=== PATIENT | female | born 1990 | race Caucasian/White ===

== ENCOUNTER 2018-04-03 23:45 | Emergency (ER) | payer MEDICAID, OTHER ==
[~2018-04-03] VITALS: Ht 152.4 cm; Wt 50.8 kg
[~2018-04-03 23:45] MED LIST: PREN-385 PO
[2018-04-03 23:48] VITALS: BP 126/80
--- NOTE | 2018-04-03 23:51 | NUR ---
PT TAKEN TO BED 9
--- NOTE | 2018-04-03 23:52 | NUR ---
27 Y/O F W/C/O SUDDEN ONSET SOB/ANXIETY X 30 MINUTES. PMH ANXIETY.PT DENIES N/V/D; SKIN IS INTACT, PINK/WARM/DRY; AAOX4, PERRL, WITH EVEN AND STEADY GAIT; LUNGS CLEAR BL, BREATHING LABORED; HR EVEN AND REGULAR, BL PERIPHERAL PULSES PRESENT; BS ACTIVE X4, NO TENDERNESS TO PALPATION, NO HEPATOSPLENOMEGALLY PALPATED, RESONANT TO PERCUSSION; PT DENIES ANY FEVER OR COUGH AT THIS TIME; PT STATES 0/10 PAIN AT THIS TIME; VSS; PATIENT POSITIONED FOR COMFORT; HOB ELEVATED; BEDRAILS UP X2; BED DOWN.
--- NOTE | 2018-04-03 23:58 | NUR ---
EKG PERFORMED AT BEDSIDE. PT COVERED IN GOWN DURING PROCEDURE WITH SPOUSE PRESENT. NORMAL SINUS RHYTHM WITH SINUS ARRHYTHMIA.
--- NOTE | 2018-04-04 00:36 | NUR ---
Dr. Prather evaluating patient at bedside.
[2018-04-04] MEDS: LORazepam 1 MG TAB PO ONE (01:05)
--- NOTE | 2018-04-04 01:11 | NUR ---
X-Ray at bedside.
[2018-04-04 01:45] LABS: ANION GAP 11.8 (8-16); CARBON DIOXIDE 25.9 mmol/L (21-32); CREATININE 0.7 mg/dL (0.6-1.3); POTASSIUM 3.7 mmol/L (3.5-5.1)
[2018-04-04 01:53] LABS: HEMOGLOBIN 13.6 g/dL (12.0-16.0); MEAN CORPUSCULAR HEMOGLOBIN 32 pg (27-31); MEAN CORPUSCULAR HGB CONC 34 g/dL (33-37); MEAN CORPUSCULAR VOLUME 92.8 fL (80-94); PLATELET COUNT (AUTO) 228 K/uL (140-450); RED BLOOD CELL COUNT(AUTO) 4.31 MIL/uL (4.20-5.40); RED CELL DISTRIBUTION WIDTH 11.6 % (11.6-13.7); WHITE BLOOD COUNT (AUTO) 8.5 K/uL (4.8-10.8)
[2018-04-04 01:54] LABS: BASOPHILS # (AUTO) 0.1 K/uL (0.00-0.22); EOSINOPHILS # (AUTO) 0.1 K/uL (0-0.4); EOSINOPHILS % (AUTO) 0.9 % (0.0-4.0); LYMPHOCYTES # (AUTO) 2.6 K/uL (2.5-16.5); LYMPHOCYTES % (AUTO) 31.1 % (20.5-51.1); MONOCYTES # (AUTO) 0.6 K/uL (0.8-1.0); NEUTROPHILS # (AUTO) 5.1 K/uL (1.8-7.7)
[2018-04-04 02:40] VITALS: BP 92/52
== END 2018-04-04 02:41 | disposition home or self-care (01) ==
LOC: MED 23:45
DX: F41.9 Anxiety disorder, unspecified (principal); R94.31 Abnormal electrocardiogram [ECG] [EKG]; Z79.899 Other long term (current) drug therapy
CPT/HCPCS: 36415; 71045; 80048; 81025; 84484; 85025; 93005; 99284; 99285; Q0092

== ENCOUNTER 2022-04-08 17:27 | Emergency (ER) | payer MEDICAID ==
[~2022-04-08] VITALS: Ht 152.4 cm; Wt 55.8 kg
[2022-04-08 17:35] VITALS: BP 115/71
[2022-04-08] MEDS ORDERED: ONDANSETRON 4 MG ODT PO ONE (20:10)
[2022-04-08] MEDS ORDERED: KETOROLAC 30 MG/ML VIAL IM ONE (20:10)
[2022-04-08 20:34] LABS: BASOPHILS % (AUTO) 0.4 % (0.0-2.0); EOSINOPHILS # (AUTO) 0.1 K/uL (0-0.4); EOSINOPHILS % (AUTO) 1.9 % (0.0-4.0); HEMOGLOBIN 14.1 g/dL (12.0-16.0); LYMPHOCYTES # (AUTO) 2.2 K/uL (2.5-16.5); LYMPHOCYTES % (AUTO) 37.1 % (20.5-51.1); MEAN CORPUSCULAR HEMOGLOBIN 31 pg (27-31); MEAN CORPUSCULAR HGB CONC 35 g/dL (33-37); MEAN CORPUSCULAR VOLUME 89.3 fL (80-94); MONOCYTES # (AUTO) 0.4 K/uL (0.8-1.0); MONOCYTES % (AUTO) 7.5 % (1.7-9.3); NEUTROPHILS # (AUTO) 3.1 K/uL (1.8-7.7); NEUTROPHILS % (AUTO) 53.1 % (42.2-75.2); PLATELET COUNT (AUTO) 323 K/uL (140-450); RED CELL DISTRIBUTION WIDTH 12.6 % (11.6-13.7); WHITE BLOOD COUNT (AUTO) 5.8 K/uL (4.8-10.8)
[2022-04-08 20:53] LABS: ALBUMIN 4.1 g/dL (3.4-5.0); ANION GAP 15.4 (8-16); CARBON DIOXIDE 26.5 mmol/L (21-32); CREATININE 0.7 mg/dL (0.6-1.3); POTASSIUM 3.9 mmol/L (3.5-5.1); TOTAL BILIRUBIN 0.2 mg/dL (0.0-1.0)
[2022-04-08 21:18] LABS: APPEARANCE,URINE CLEAR (CLEAR); BILIRUBIN,URINE NEGATIVE (NEGATIVE); BLOOD, URINE NEGATIVE (NEGATIVE); COLOR,URINE YELLOW (YELLOW); LEUKOCYTE ESTERASE ,URINE NEGATIVE (NEGATIVE); NITRITE, URINE NEGATIVE (NEGATIVE); UGLUCOSE NEGATIVE (NEGATIVE)
[2022-04-08] MEDS ORDERED: ONDANSETRON 4 MG ODT ONE (21:29)
[2022-04-08] MEDS ORDERED: KETOROLAC 30 MG/ML VIAL ONE (21:29)
--- NOTE | 2022-04-08 21:35 | NUR ---
PATIENT MEDICATED AND PLACED BACK IN LOBBY.
[2022-04-08] MEDS ORDERED: ONDA-188 SL (22:51)
[2022-04-08] MEDS ORDERED: CIPR500T4 PO (22:51)
[2022-04-08] MEDS ORDERED: BISM262C53 PO (22:51)
[2022-04-08] MEDS ORDERED: LOPE-231 PO (22:52)
[2022-04-08] MEDS ORDERED: LACT1TAB47 PO (22:56)
[2022-04-08 23:12] VITALS: BP 107/71
--- NOTE | 2022-04-08 23:12 | NUR ---
Patient discharged with v/s stable. Written and verbal after care instructions given and explained. Patient alert, oriented and verbalized understanding of instructions. Ambulatory with steady gait. All questions addressed prior to discharge. ID band removed. Patient advised to follow up with PMD. Rx of PEPTO-BISMOL, PROBIOTIC, ANTI-DIRRHEAL, AND ZOFRAN given.
== END 2022-04-08 23:12 | disposition home or self-care (01) ==
LOC: MED 17:27
DX: A08.4 Viral intestinal infection, unspecified (principal); E78.5 Hyperlipidemia, unspecified; Z98.890 Other specified postprocedural states
CPT/HCPCS: 36415; 74176; 80053; 81003; 81025; 83690; 85025; 96372; 99284; J1885; Q0162; 96374